=== PATIENT | male | born 1945 | race Caucasian/White ===

== ENCOUNTER 2018-03-06 18:41 | Emergency (ER) | payer MEDICARE ==
[~2018-03-06] VITALS: Wt 163.5 kg
[~2018-03-06 18:41] MED LIST: CARDIZEM CD240 MG PO; COUMADIN 77.5 MG/TAB PO; GLUCOPHAGE PO; K-TAB20 MEQ PO; PRINIVIL20 M1 PO; TOPROL XL 25MG25 MG PO
[2018-03-06] MEDS ORDERED: ROSUVASTATIN CA10 MG PO (19:32)
[2018-03-06] MEDS ORDERED: XARELTO20 MG PO (19:32)
[2018-03-06 19:43] LABS: HEMOGLOBIN 14.8 g/dL (13.5-18.0); MEAN CELL VOLUME 87 fl (78-100); MEAN CORPUSCULAR HEMOGLOBIN 27 pg (27-31); MEAN CORPUSCULAR HGB CONC 32 g/dL (33-37); PLATELET COUNT 182 K/mm3 (130-400); RED BLOOD COUNT 5.41 M/mm3 (4.20-5.60); RED CELL DISTRIBUTION WIDTH 15.3 % (11.5-14.5); WHITE BLOOD COUNT 19.6 K/mm3 (4.8-10.8)
[2018-03-06 20:20] LABS: ALBUMIN 3.7 g/dL (3.5-5.0); BUN/CREATININE RATIO 14.2 (6.0-26.0); CALCIUM 8.7 mg/dL (8.4-10.2); POTASSIUM 3.6 mmol/L (3.6-5.0); TOTAL BILIRUBIN 1.2 mg/dL (0.2-1.3); TOTAL PROTEIN 7.9 g/dL (6.3-8.2)
[2018-03-06 20:30] LABS: MEAN PLATELET VOLUME 12.6 fl (7.4-10.4)
[2018-03-06 20:31] LABS: LYMPHOCYTE 5 % (20-51); MONOCYTE 8 % (3-10); NEUTROPHILS 85 % (42-75)
[2018-03-06 20:55] LABS: URINE APPEARANCE HAZY; URINE BILIRUBIN NEGATIVE (NEGATIVE); URINE BLOOD NEGATIVE (NEGATIVE); URINE COLOR YELLOW; URINE GLUCOSE NEGATIVE (NEGATIVE); URINE KETONE NEGATIVE (NEGATIVE); URINE LEUKOCYTE ESTERASE NEGATIVE (NEGATIVE); URINE NITRATE NEGATIVE (NEGATIVE); URINE PROTEIN(semi-quant) 2+ mg/dL (NEGATIVE); URINE UROBILINOGEN NORMAL (NORMAL)
[2018-03-06 23:12] VITALS: BP 128/77
== END 2018-03-06 23:12 | disposition short-term general hospital (02) ==
LOC: ED 18:41
PROVIDERS: Nurse Practitioner Family
DX: L03.311 Cellulitis of abdominal wall (principal); I48.91 Unspecified atrial fibrillation; R09.02 Hypoxemia; G47.33 Obstructive sleep apnea (adult) (pediatric); Z86.14 Personal history of Methicillin resistant Staphylococcus aureus infection; D72.829 Elevated white blood cell count, unspecified; I10 Essential (primary) hypertension; Z79.01 Long term (current) use of anticoagulants; E11.9 Type 2 diabetes mellitus without complications; Z79.84 Long term (current) use of oral hypoglycemic drugs; Z79.899 Other long term (current) drug therapy; R60.0 Localized edema
CPT/HCPCS: J3370; J7050

== ENCOUNTER → 2019-10-02 | Outpatient (CLI) | payer MEDICARE ==
[~2019-10-02] MED LIST changes: +ROSUVASTATIN CA10 MG PO; +XARELTO20 MG PO
== END ==
LOC: RAD 14:36
DX: M79.89 Other specified soft tissue disorders (principal)

== ENCOUNTER 2020-09-11 00:35 | Emergency (ER) | payer MEDICARE ==
[2020-09-11] MEDS ORDERED: LASIX20 M1 PO (01:15)
[2020-09-11] MEDS ORDERED: COREG12.5 M1 PO (01:46)
[2020-09-11 02:00] LABS: HEMATOCRIT 50.1 % (42.0-52.0); MEAN CELL VOLUME 89 fl (78-100); MEAN CORPUSCULAR HEMOGLOBIN 27 pg (27-31); MEAN CORPUSCULAR HGB CONC 30 g/dL (33-37); PLATELET COUNT 186 K/mm3 (130-400); RED BLOOD COUNT 5.62 M/mm3 (4.20-5.60); RED CELL DISTRIBUTION WIDTH 15.5 % (11.5-14.5); WHITE BLOOD COUNT 10.8 K/mm3 (4.8-10.8)
[2020-09-11 02:12] LABS: LYMPHOCYTE 8 % (20-51); MONOCYTE 7 % (3-10); NEUTROPHILS 80 % (42-75)
[2020-09-11 02:30] VITALS: BP 155/94
[2020-09-11] MEDS ORDERED: LISINOPRIL40 MG PO (15:45)
== END 2020-09-11 02:30 | disposition home or self-care (01) ==
LOC: ED 00:35
PROVIDERS: Nurse Practitioner Family
DX: R04.0 Epistaxis (principal); I10 Essential (primary) hypertension; I48.91 Unspecified atrial fibrillation; Z79.01 Long term (current) use of anticoagulants

== ENCOUNTER 2020-09-11 12:56 | Emergency (ER) | payer MEDICARE ==
[~2020-09-11] VITALS: Ht 182.9 cm; Wt 163.6 kg
[~2020-09-11 12:56] MED LIST changes: +COREG12.5 M1 PO; +LASIX20 M1 PO
[2020-09-11 14:20] LABS: PROTHROMBIN TIME 14.2 SECONDS (9.0-12.0)
[2020-09-11 14:38] LABS: HEMATOCRIT 50.9 % (42.0-52.0); HEMOGLOBIN 15.1 g/dL (13.5-18.0); MEAN CELL VOLUME 88 fl (78-100); MEAN CORPUSCULAR HEMOGLOBIN 26 pg (27-31); MEAN CORPUSCULAR HGB CONC 30 g/dL (33-37); MEAN PLATELET VOLUME 11.9 fl (7.4-10.4); PLATELET COUNT 210 K/mm3 (130-400); RED BLOOD COUNT 5.79 M/mm3 (4.20-5.60); RED CELL DISTRIBUTION WIDTH 15.7 % (11.5-14.5); WHITE BLOOD COUNT 14.1 K/mm3 (4.8-10.8)
[2020-09-11 15:06] LABS: LYMPHOCYTE 9 % (20-51); NEUTROPHILS 81 % (42-75)
[2020-09-11 15:07] LABS: MONOCYTE 8 % (3-10)
[2020-09-11] MEDS ORDERED: LISINOPRIL40 MG PO (15:45)
[2020-09-11 16:00] VITALS: BP 162/82
== END 2020-09-11 16:00 | disposition home or self-care (01) ==
LOC: ED 12:56
PROVIDERS: Nurse Practitioner
DX: R04.0 Epistaxis (principal); I10 Essential (primary) hypertension; Z79.01 Long term (current) use of anticoagulants; Z79.84 Long term (current) use of oral hypoglycemic drugs

== ENCOUNTER 2020-09-19 17:39 | Emergency (ER) | payer MEDICARE ==
[~2020-09-19 17:39] MED LIST changes: +LISINOPRIL40 MG PO
[2020-09-19 18:11] LABS: BASO # 0.1 (0.02-0.10); EOS # 0.4 (0.04-0.40); EOS % 4.1 % (0.0-4.0); HEMATOCRIT 45.4 % (42.0-52.0); HEMOGLOBIN 13.6 g/dL (13.5-18.0); LYMPH# 1.2 (1.50-4.00); MEAN CELL VOLUME 91 fl (78-100); MEAN CORPUSCULAR HEMOGLOBIN 27 pg (27-31); MEAN CORPUSCULAR HGB CONC 30 g/dL (33-37); MEAN PLATELET VOLUME 11.4 fl (7.4-10.4); NEU # 7.3 (1.40-6.50); PLATELET COUNT 254 K/mm3 (130-400); RED BLOOD COUNT 5.01 M/mm3 (4.20-5.60)
[2020-09-19 18:20] LABS: POTASSIUM 4.3 mmol/L (3.5-5.1)
[2020-09-19 18:21] LABS: CALCIUM 8.7 mg/dL (8.3-10.5)
[2020-09-19 22:53] VITALS: BP 159/82
== END 2020-09-19 22:53 | disposition home or self-care (01) ==
LOC: ED 17:39
PROVIDERS: Family Medicine
DX: R04.0 Epistaxis (principal); I10 Essential (primary) hypertension; I48.91 Unspecified atrial fibrillation; E11.9 Type 2 diabetes mellitus without complications; Z87.891 Personal history of nicotine dependence; Z79.84 Long term (current) use of oral hypoglycemic drugs